=== PATIENT | female | born 1970 | race Caucasian/White ===

== ENCOUNTER → 2021-02-13 | Outpatient (CLI) | payer BC | LOC: MC.RAD 07:00 | DX: N63.10 Unspecified lump in the right breast, unspecified quadrant (principal) ==

== ENCOUNTER → 2021-12-22 | Outpatient (CLI) | payer BC | LOC: MC.RAD 07:55 | DX: R92.8 Other abnormal and inconclusive findings on diagnostic imaging of breast (principal) ==